=== PATIENT | female | born 1995 | race Caucasian/White ===

== ENCOUNTER 2016-11-14 18:42 | Emergency (ER) | payer OTHER ==
[2016-11-14 18:57] VITALS: BP 124/71; PULSE 87; RESP 16; TEMP 98.8; O2SAT 99
[2016-11-14] MEDS ORDERED: IBUPROFEN 600 MG TAB PO ONE (19:40)
[2016-11-14] MEDS ORDERED: CYCLOBENZAPRINE 10 MG TAB ONE (19:40)
[2016-11-14] MEDS ORDERED: IBUPROFEN 200 MG TAB PO ONE (19:40)
[2016-11-14] MEDS ORDERED: CYCLOBENZAPRINE 10 MG TAB PO ONE (19:52)
[2016-11-14] MEDS ORDERED: IBUPROFEN 800 MG TAB PO ONE (19:52)
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
== END 2016-11-14 20:00 | disposition home or self-care (01) ==
LOC: CED 18:42
DX: S16.1XXA Strain of muscle, fascia and tendon at neck level, initial encounter (principal); V89.0XXA Person injured in unspecified motor-vehicle accident, nontraffic, initial encounter
CPT/HCPCS: 99204-PO; G0463-PO